=== PATIENT | female | born 1980 | race Caucasian/White ===

== ENCOUNTER 2016-07-06 00:47 | Emergency (ER) | payer OTHER ==
[~2016-07-06] VITALS: Ht 177.8 cm; Wt 136.1 kg
[~2016-07-06 00:47] MED LIST: ADVAIR 100/501 E1 INH; ALLEGRA-D 24 H1 EACH PO; AMOXICILLIN500 MG PO; AMOXIL500 MG PO; ANAPROX DS550 MG PO; ANTIVERT/2525 MG PO; BACTRIM DS 8001 TA1 PO; CLARITIN-D 24 H1 T24 PO; CLARITIN10 MG PO; CLINDAMYCIN HC300 MG PO; CLINDAMYCIN150 MG PO; DARVOCET N 1001 TAB PO; DAYPRO600 M1 PO; EXCEDRIN EXTRA1 TAB PO; FLEXERIL10 MG PO; K-Dur 20MEQ20 MEQ PO; MEDROL DOSEPAK4 MG PO; MIRALAX POWDER17 G1 PO; MOTRIN800 MG PO; NAPROSYN500 MG PO; NKHM; PENICILLIN VK500 MG PO; PHENERGAN25 M1 PO; PREDNISONE10 MG PO; PROAIR RESPICL90 MCG INH; ROBAXIN750 MG PO; ROBITUSSIN AC 110 ML PO; TRAMADOL HCL50 MG PO; ULTRAM50 MG PO; VALIUM5 MG PO; ZITHROMAX Z PA250 MG PO; ZOFRAN ODT4 MG SL; ZYRTEC10 M2 PO
[2016-07-06] MEDS ORDERED: NOVAPLUS V0.09 MG/Ac INH (00:56)
[2016-07-06] MEDS ORDERED: ZITHROMAX250 MG PO (02:06)
[2016-07-06] MEDS ORDERED: MUCINEX DM 30/61 TAB PO (02:06)
[2016-07-06] MEDS ORDERED: PREDNISONE20 M1 PO (02:06)
[2016-07-06] MEDS ORDERED: PROAIR HFA8.5 GM INH (02:06)
== END 2016-07-06 02:16 | disposition home or self-care (01) ==
LOC: ED 00:47
DX: J20.9 Acute bronchitis, unspecified (principal); J01.90 Acute sinusitis, unspecified; Z88.1 Allergy status to other antibiotic agents; Z88.8 Allergy status to other drugs, medicaments and biological substances

== ENCOUNTER 2017-03-04 23:10 | Emergency (ER) | payer OTHER ==
[~2017-03-04] VITALS: Ht 177.8 cm; Wt 147.4 kg
[~2017-03-04 23:10] MED LIST changes: +MUCINEX DM 30/61 TAB PO; +NOVAPLUS V0.09 MG/Ac INH; +PREDNISONE20 M1 PO; +PROAIR HFA8.5 GM INH; +ZITHROMAX250 MG PO
[2017-03-04] MEDS ORDERED: ZITHROMAX250 MG PO (23:30)
== END 2017-03-04 23:52 | disposition home or self-care (01) ==
LOC: ED 23:10
DX: J32.9 Chronic sinusitis, unspecified (principal); Z88.6 Allergy status to analgesic agent; Z88.1 Allergy status to other antibiotic agents; Z79.899 Other long term (current) drug therapy

== ENCOUNTER 2017-08-22 08:00 | Emergency (ER) | payer OTHER ==
[~2017-08-22] VITALS: Ht 177.8 cm; Wt 147.0 kg
[2017-08-22] MEDS ORDERED: ORPHENADRINE C100 M1 PO (09:37)
[2017-08-22] MEDS ORDERED: Motrin,Rufen800 MG PO (09:37)
== END 2017-08-22 09:46 | disposition home or self-care (01) ==
LOC: ED 08:00
DX: S16.1XXA Strain of muscle, fascia and tendon at neck level, initial encounter (principal); M25.511 Pain in right shoulder; R11.0 Nausea; Z88.1 Allergy status to other antibiotic agents; Z88.8 Allergy status to other drugs, medicaments and biological substances; X58.XXXA Exposure to other specified factors, initial encounter; Y93.89 Activity, other specified; Y92.89 Other specified places as the place of occurrence of the external cause; Y99.8 Other external cause status

== ENCOUNTER 2018-03-13 07:10 | Emergency (ER) | payer BC, OTHER ==
[~2018-03-13] VITALS: Ht 177.8 cm; Wt 145.1 kg
[~2018-03-13 07:10] MED LIST changes: +Motrin,Rufen800 MG PO; +ORPHENADRINE C100 M1 PO
[2018-03-13] MEDS ORDERED: Motrin,Rufen800 MG PO (09:00)
== END 2018-03-13 09:51 | disposition home or self-care (01) ==
LOC: ED 07:10
DX: S82.892A Other fracture of left lower leg, initial encounter for closed fracture (principal); S82.492A Other fracture of shaft of left fibula, initial encounter for closed fracture; S83.92XA Sprain of unspecified site of left knee, initial encounter; Z88.2 Allergy status to sulfonamides; Z88.8 Allergy status to other drugs, medicaments and biological substances; W23.0XXA Caught, crushed, jammed, or pinched between moving objects, initial encounter; Y93.89 Activity, other specified; Y92.89 Other specified places as the place of occurrence of the external cause; Y99.8 Other external cause status

== ENCOUNTER 2019-04-21 21:14 | Emergency (ER) | payer SELFPAY ==
[~2019-04-21] VITALS: Ht 177.8 cm; Wt 140.6 kg
[2019-04-21] MEDS ORDERED: ZITHROMAX250 MG PO (23:45)
[2019-04-21] MEDS ORDERED: PROVENTIL HFA6.7 GM INH (23:45)
[2019-04-21] MEDS ORDERED: TESSALON PERLE100 M1 PO (23:45)
== END 2019-04-22 00:04 | disposition home or self-care (01) ==
LOC: ED 21:14
DX: J40 Bronchitis, not specified as acute or chronic (principal); R11.2 Nausea with vomiting, unspecified; Z88.2 Allergy status to sulfonamides; Z88.8 Allergy status to other drugs, medicaments and biological substances

== ENCOUNTER 2022-02-28 11:31 | Emergency (ER) | payer OTHER ==
[~2022-02-28] VITALS: Ht 177.8 cm; Wt 149.7 kg
[~2022-02-28 11:31] MED LIST changes: +PROVENTIL HFA6.7 GM INH; +TESSALON PERLE100 M1 PO
[2022-02-28 13:26] LABS: BASO % 0.5 % (0.0-1.0); EOS # 0.1 10*3/uL (0.0-0.4); EOS % 2.4 % (1.0-4.0); HEMATOCRIT 30.2 % (37.0-47.0); LYMPH # 0.3 10*3/uL (1.3-4.4); LYMPH % 4.9 % (27.0-41.0); MEAN CELL VOLUME 69.7 fl (81.0-99.0); MEAN CORPUSCULAR HGB 20.1 pg (27.0-31.0); MEAN CORPUSCULAR HGB CONC 28.8 g/dl (33.0-37.0); MONO # 0.6 10*3/uL (0.1-1.0); MONO % 9.5 % (3.0-9.0); NEUT # 4.8 10*3/uL (2.3-7.9); NEUT % 82.4 % (47.0-73.0); PLATELET COUNT AUTOMATED 205 10*3/uL (130-400); RED BLOOD COUNT 4.33 10*6/uL (4.10-5.10); RED CELL DISTRI WIDTH 18.6 % (0-14.5); WHITE BLOOD COUNT 5.9 10*3/uL (4.8-10.8)
[2022-02-28 13:45] LABS: ALKALINE PHOSPHATASE 88 U/L (45-117); BUN 6 mg/dl (7-24); CHLORIDE 104 mmol/L (98-107); POTASSIUM 3.7 mmol/L (3.5-5.1); SGOT/AST 17 IU/L (3-35); SGPT/ALT 23 U/L (12-78); SODIUM 135 mmol/L (136-145); TOTAL PROTEIN 7.3 gm/dL (6.4-8.2)
[2022-02-28 13:47] LABS: B-hCG (QUALITATIVE) NEGATIVE (NEGATIVE)
[2022-02-28] MEDS ORDERED: MUCINEX DM 30/61 TAB PO (16:08)
[2022-02-28] MEDS ORDERED: PROVENTIL HFA6.7 GM INH (16:08)
[2022-02-28] MEDS ORDERED: CEPACOL SORE T1 EACH MM (16:09)
== END 2022-02-28 16:28 | disposition home or self-care (01) ==
LOC: ED 11:31
PROVIDERS: Physician Assistant
DX: U07.1 COVID-19 (principal); B34.9 Viral infection, unspecified; R00.0 Tachycardia, unspecified; Z88.8 Allergy status to other drugs, medicaments and biological substances; Z88.2 Allergy status to sulfonamides; Z79.2 Long term (current) use of antibiotics

== ENCOUNTER → 2022-03-21 | Outpatient (CLI) | payer OTHER ==
[~2022-03-21] MED LIST changes: +CEPACOL SORE T1 EACH MM
== END | disposition home or self-care (01) ==
LOC: RAD 12:01
PROVIDERS: ATTEND Family Medicine
DX: R05.1 Acute cough (principal)

== ENCOUNTER → 2024-10-07 | Emergency (ER) | payer SELFPAY ==
[~2024-10-07] VITALS: Ht 177.8 cm; Wt 158.8 kg
[~2024-10-07] MED LIST changes: +Clindamycin Phosphate 50 ML IV ONE; +Dexamethasone Sodium Phospha 20 MG/5 ML VIAL IV ONE; +IOHEXOL 300 MG/ML 100 ML VIAL IV ONE; +IOHEXOL 300 MG/ML 100 ML VIAL ONE; +Ketorolac Tromethamine 30 MG/ML VIAL IV ONE; +MORPHINE Sulfate 2 MG/ML SYR IV ONE; +Ondansetron Hydrochloride 4 MG/2 ML VIAL IV ONE; +Ondansetron4 MG PO
[2024-10-07 10:04] LABS: BASO # 0.1 10*3/uL (0.0-0.1); BASO % 0.8 % (0.0-1.0); EOS # 0.2 10*3/uL (0.0-0.4); EOS % 3.4 % (1.0-4.0); HEMATOCRIT 32.4 % (37.0-47.0); MEAN CELL VOLUME 70.3 fl (81.0-99.0); MEAN CORPUSCULAR HGB 20.4 pg (27.0-31.0); MEAN PLATELET VOLUME 10.7 fl (9.6-12.3); MONO # 0.4 10*3/uL (0.1-1.0); MONO % 5.5 % (3.0-9.0); NEUT % 70.8 % (47.0-73.0); PLATELET COUNT AUTOMATED 233 10*3/uL (130-400); RED BLOOD COUNT 4.61 10*6/uL (4.10-5.10); RED CELL DISTRI WIDTH 18.6 % (0-14.5); WHITE BLOOD COUNT 7.1 10*3/uL (4.8-10.8)
[2024-10-07 10:25] LABS: BUN 10 mg/dl (9-23); CHLORIDE 107 mmol/L (98-107); POTASSIUM 3.7 mmol/L (3.4-5.1)
== END ==
LOC: ED 08:43
PROVIDERS: Emergency Medicine
DX: K04.7 Periapical abscess without sinus (principal); K02.9 Dental caries, unspecified; L03.211 Cellulitis of face; Z88.8 Allergy status to other drugs, medicaments and biological substances; Z88.2 Allergy status to sulfonamides